=== PATIENT | male | born 1965 | race Caucasian/White ===

== ENCOUNTER 2019-03-20 09:51 | Inpatient (IN) ==
[2019-03-20] MEDS ORDERED: SODIUM CHLORIDE 0.9% 1000ML 1,000 ML IV ONE ×2 (10:34→12:03)
[2019-03-20] MEDS ORDERED: AMPICILLIN/SULBACTAM SOD 3,000 MG in 0.9 % SODIUM CHLORIDE 100 ML IV STA (10:35)
[2019-03-20 10:58] LABS: Eosinophils # (auto) 0.01 K/uL (0-0.5); Eosinophils % (auto) 0.1 %; Hematocrit (blood only) 41.4 % (42-52); Hemoglobin 14.6 g/dL (14.0-18.0); Immature Granulocytes # (auto) 0.04 K/uL (0.00-0.02); Immature Granulocytes % (auto) 0.3 %; Lymphocytes # (auto) 0.54 K/uL (1.2-3.4); Lymphocytes % (auto) 3.4 %; Mean Corpuscular Hemoglobin 31.1 pg (25-34); Mean Corpuscular Hgb Conc 35.3 g/dL (32-36); Mean Corpuscular Volume 88.3 fL (80-100); Monocytes # (auto) 1.41 K/uL (0.11-0.59); Monocytes % (auto) 8.8 %; Neutrophils % (auto) 87.4 %; Platelet Count 162 K/uL (130-400); RDW Coefficient of Variation 12.7 % (11.5-14.5); RDW Standard Deviation 40.8 fL (36.4-46.3); Red Blood Count 4.69 M/uL (4.7-6.1)
[2019-03-20 11:13] LABS: Partial Thromboplastin Time 27.3 Seconds (21.0-31.0); Prothrombin Time 10.3 Seconds (9.0-12.0)
[2019-03-20 11:15] LABS: Albumin Level 3.9 gm/dl (3.4-5.0); Calcium 8.8 mg/dl (8.5-10.1); Creatinine Clr Calc Pharmacy 77.1 ml/min; Est GFR (African American) 91.6; Magnesium 1.9 mg/dl (1.8-2.4); Potassium 3.8 mmol/L (3.5-5.1)
[2019-03-20 11:18] LABS: Albumin Globulin Ratio 1.2 (0.9-2); Bilirubin,Total 1.4 mg/dl (0.2-1); Globulin 3.2 gm/dl (2.5-4.0); Total Protein 7.1 gm/dl (6.4-8.2)
--- NOTE | 2019-03-20 11:31 | XRay Report ---
XR chest 1V portable HISTORY: SEPSIS COMPARISON: None. FINDINGS: The lungs are clear. Cardiac silhouette is normal in size. No pleural effusions. No pneumot horax. Old, healed right-sided rib fractures and an old, healed left clavicle fracture. IMPRESSION: No acute process. ACT 112: Negative or not required by law. Electronically signed by: Simba Rice M.D. 03/20/2019 11:30 AM
[2019-03-20] MEDS ORDERED: KETOROLAC 30 MG/ML VIAL IV STA (12:03)
[2019-03-20] MEDS ORDERED: DIPHTHERIA/TETANUS/PERTUSSIS 0.5 ML SYR/VIAL IM ONE (12:03)
[2019-03-20] MEDS ORDERED: ACETAMINOPHEN 500 MG TAB PO STA (12:14)
--- NOTE | 2019-03-20 12:55 | History & Physical Report ---
Date of Service March 20, 2019 Assessment & Plan (1) Cellulitis of hand, right: (2) Lymphangitis: (3) Cat bite: Over 24 hours ago bite to right hand from his inside house cat. Increased edema, erythema, discomfort to right hand since. +chills. Reports thinks cat up to date on vaccinations. In ER T: 38, P: 108, R: 20, BP: 105/72, 96% on RA. WBC: 16, Lactate: 1.6 Meets SIRS criteria. -In ER received Tdap, Unasyn, Tylenol, Toradol -Continue Unasyn -Obtain Xray of hand -Ibuprofen, Tramadol for pain control, oxycodone for severe pain -Ortho consult, called ortho answering service -CBC, BMP in AM (4) Tobacco use: -Chewing tobacco cessation discussed -Nicotine patch (5) GERD (gastroesophageal reflux disease): -Continue PPI DVT Prophylaxis -Low risk - Ambulate Full Code as per discussion with pt Follows with Dr Hardy for routine care Pt was seen and care coordinated with Dr Petersen. See addendum History of Present Illness Chief Complaint: Right hand erythema Primary Care Provider: Jonas Hardy MD Pt is 53 y/o M with PMH GERD presented to ER with c/o R hand erythema and edema x 1 day. Reports a little over 24 hours ago his inside house cat and his outdoor cat had an encounter in his garage and he picked up his indoor cat and it bit his right hand. Over past 24 hours reports noticed edema, erythema to right hand. Denies any noted discharge from area. Reports pain to hand with palpation and ROM of fingers. Last night felt some chills, did not take his temperature. He reports he thinks that the indoor cat is up to date on its vaccinations. He was unsure when his last tetanus booster. Denies diaphoresis, N/V/D/C, BRICEÑO, dizziness, syncope, vision changes, neck pain, CP, SOB, orthopnea, palpitations, cough, sore throat, choking, otalgia, rhinorrhea, abdominal pain, paresthesias, weakness, extremity weakness, other rashes, urinary symptoms. In ER received updated Tdap today. Allergies Allergy/AdvReac Type Severity Reaction Status Date / Time No Known Drug Allergies Allergy Unknown . Verified 03/20/19 11:46 Home Medications Home Medications Medication Instructions Recorded Confirmed Type omeprazole 20 mg PO QAM 03/20/19 03/20/19 History Past Med/Surg History Medical History GERD (gastroesophageal reflux disease) Tobacco use Surgical History (Updated 03/20/19 @ 13:04 by Ling Diaz PA-C) History of arthroscopic knee surgery History of eye surgery As Family History Other No pertinent family history Social History (Updated 03/20/19 @ 13:04 by Ling Diaz PA-C) Preferred Language: Montserratian Communication Ability: Effective Grid Maker Required: No Beliefs That Will Affect Care: None marital status: Current Living Situation: Spouse current occupational status: employed Other Information That Helps Us Care for You: No Feels Safe at Home: Yes Safety Concerns: Feels Safe At This Time Smoking Status: Former smoker Tobacco Type: smokeless tobacco ; Do You Dip or Chew Tobacco: Yes (1 can/day) ; Hx Alcohol Use: Yes Alcohol type: beer Hx Substance Use: No Review of Systems Review of Systems: All systems reviewed & are unremarkable except as noted in HPI & below Physical Exam Physical Exam: General: no distress, WDWN Head: normocephalic, atraumatic Eyes: PERRL, EOM's intact, conjunctiva non-injected, anicteric ENT: normal inspection external ears, nose, mucous membranes moist Neck: supple, trachea midline Lungs: clear, no respiratory distress, no wheezing/rhonchi/rales CV: RRR, no murmur, no pretibial edema Abd: normal BS, soft, non-tender Ext: no cyanosis, no calf tenderness; RUE: Right hand: +warmth, edema, erythema entire hand extending to fingers and right wrist, worse edema over dorsal aspect of hand over 2nd and 3rd MCP joints and to radial aspect of wrist with tenderness to palpation; +scabbed puncture sites to dorsal hand, +dry skin and fissures noted to fingers; Limited flexion of fingers secondary to edema and discomfort, limited flexion and extension of wrist. +red streaking from wrist proximally to axilla Neuro: A&O x 3, no focal deficits noted, normal affect Skin: as above in extremities, otherwise warm, dry Results & Data Vital Signs (Past 12 Hours) Vital Signs Temp Pulse Pulse Resp BP BP Pulse Ox 03/20/19 11:52 71 18 120/73 96 03/20/19 10:34 96 03/20/19 10:02 38.0 C H 104 H 20 105/72 96 Laboratory Results Short CBC 03/20/19 Range/Units 10:45 WBC 16.00 H (4.8-10.8) K/uL Hgb 14.6 (14.0-18.0) g/dL Hct 41.4 L (42-52) % Plt Count 162 (130-400) K/uL BMP 03/20/19 10:45 Sodium 136 Potassium 3.8 Chloride 105 Carbon Dioxide 26 BUN 16 Creatinine 1.08 Glucose 120 H Calcium 8.8 Liver Function 03/20/19 Range/Units 10:45 Total Bilirubin 1.4 H (0.2-1) mg/dl AST 15 (15-37) U/L ALT 26 (12-78) U/L Alkaline Phosphatase 74 (45-117) U/L Albumin 3.9 (3.4-5.0) gm/dl Diagnostic Findings CXR: IMPRESSION: No acute process. Code Status & VTE Plan VTE Prophylaxis Plan VTE Prophylaxis will be ordered: No Supervising Physician Co-Signing Physician Notes HISTORY: Record reviewed. Patient interviewed and examined in the ED. Care coordinated with Ling Diaz PA-C. Please refer to her documentation for complete history. Briefly, 53-year-old male who enjoys good health. Suffered cat bite to the right hand from domestic cat about 30 hours prior to admission. Experiencing hand pain and swelling, fever, chills. EXAM: General- no distress Lungs- clear to auscultation; no respiratory distress Cardiovascular- RRR; I/ sys murmur at base; no pretibial edema Abdomen- + bowel sounds, soft, nontender Extremities- puncture wounds dorsum right hand; erythema and swelling dorsum right hand; lymphangitic spread --> medial upper arm; no cyanosis; no calf tenderness Neuro- alert, oriented Skin- warm & dry DATA: WBC 16,000. Serum lactate 1.6. X-ray of right hand demonstrated soft tissue swelling of the dorsum, no underlying bony abnormalities, no foreign bodies. ASSESSMENT AND PLAN: Cat bite right hand with associated cellulitis. Meets criteria for sepsis per current CMS guidelines. Hemodynamically stable. Serum lactate less than 2. Blood cultures were obtained in the ED and patient was started on broad-spectrum intravenous antibiotic coverage with ampicillin/sulbactam which will be continued. Consult Orthopedics. DPT vaccine given in ED. Please refer to FRANCIS Diaz's documentation for discussion of other issues.
[2019-03-20] MEDS ORDERED: OXYCODONE HCL IR 5 MG TAB (IMMEDIATE RELEASE) PO PRN (13:39)
[2019-03-20] MEDS ORDERED: TRAMADOL HCL 50 MG TABLET PO PRN (13:39)
[2019-03-20] MEDS ORDERED: IBUPROFEN 600 MG TAB PO PRN (13:39)
[2019-03-20] MEDS ORDERED: ONDANSETRON INJ 2 MG/ML 2 ML VIAL IV PRN (13:39)
[2019-03-20] MEDS ORDERED: POLYETHYLENE (MIRALAX) 17 GM PACK PO PRN (13:39)
[2019-03-20] MEDS ORDERED: ACETAMINOPHEN 325 MG TAB PO PRN (13:39)
[2019-03-20] MEDS: SODIUM CHLORIDE 0.9% 1000ML 1,000 ML IV SCH ×2 (14:14→22:12)
[2019-03-20] MEDS: NICOTINE 21 MG/24 HR TDSY TD SCH (14:14)
--- NOTE | 2019-03-20 14:48 | XRay Report ---
RIGHT HAND 3 VIEWS HISTORY: cellulitis/cat bite COMPARISON: None. FINDINGS: There is no fracture or dislocation. Dorsal soft tissue swelling. No radiopaque foreign bod ies. IMPRESSION: Dorsal soft tissue swelling. No underlying bony abnormality. ACT 112: Negative or not required by law. Electronically signed by: Simba Rice M.D. 03/20/2019 2:47 PM
--- NOTE | 2019-03-20 15:44 | Emergency Department Note ---
Entered by Cecilia Chamberlain acting as a scribe for Onesimo Michel MD History of Present Illness General Chief complaint: Animal Bite Stated complaint: CAT BITE ON RT HAND, TEMP, RED STREAK/PAIN Time Seen by Provider: 03/20/19 10:31 Source: patient Mode of arrival: ambulatory Limitations: no limitations History of Present Illness Provider complaint: Animal bite Onset (ago): day(s) 1 Location: upper extremity (hand) and right Pain Consistency: + other (episode) Maximum Pain Intensity: 3 Quality: + other (animal bite) Associated symptoms: + fever/chills (warm to the touch), + headaches and + other (Additional symptoms: right hand pain, swelling, and warmth; streaking up right arm; back pain; abdominal pain) Treatments prior to arrival: none The patient is a 53 year old white male w/ no significant PMHx who presents to the ED w/ CC of an episode of an animal bite occurring yesterday morning. The patient reports that he works overnight and came back from work around 0330 yesterday to find his inside and outside cats fighting in the garage. He states that he tried to intervene and that his inside cat ended up biting his right hand. He notes that he had some scratches and blood on this hand but otherwise did think anything of the bite, so he subsequently went to bed without cleaning the area. He mentions that his cats appeared to be their normal selves. The patient reports that he noticed pain and swelling in his right hand when woke up a few hours later. He explains that he got back from work around 0400 this morning and realized that his right hand symptoms were progressively worsening. He describes his symptoms as a painful, peeling sensation. His reportedly also thought that the patient's hand felt warm to the touch and that he had red streaking up his right arm. The patient adds that he currently has a headache and has some back and abdominal pain secondary to a fall a week ago. He notes that he was referred to the ED from Urgent Care. Home Medications Home Medications Medication Instructions Recorded Confirmed Type omeprazole 20 mg PO QAM 03/20/19 03/20/19 History Allergies Allergy/AdvReac Type Severity Reaction Status Date / Time No Known Drug Allergies Allergy Unknown . Verified 03/20/19 11:46 Past Med/Surg History Medical History GERD (gastroesophageal reflux disease) Tobacco use Surgical History (Updated 03/20/19 @ 13:04 by Ling Diaz PA-C) History of arthroscopic knee surgery History of eye surgery As Family History Other No pertinent family history Social History (Updated 03/20/19 @ 13:04 by Ling Diaz PA-C) Preferred Language: Belgian Communication Ability: Effective Furniture Mover Required: No Beliefs That Will Affect Care: None marital status: Current Living Situation: Spouse current occupational status: employed Other Information That Helps Us Care for You: No Feels Safe at Home: Yes Safety Concerns: Feels Safe At This Time Smoking Status: Former smoker Tobacco Type: smokeless tobacco ; Do You Dip or Chew Tobacco: Yes (1 can/day) ; Hx Alcohol Use: Yes Alcohol type: beer Hx Substance Use: No Review of Systems See HPI for pertinent positives & negatives. and A total of 10 systems reviewed and were otherwise negative Physical Exam Vital Signs Vital Signs - 24 hr 03/20/19 10:02 03/20/19 10:34 03/20/19 11:52 Temperature 38.0 C H Temperature Source Oral Pulse Rate 104 H Pulse Rate [Apical] 71 Respiratory Rate 20 18 Respiratory Depth Normal Blood Pressure 105/72 Blood Pressure [Left Arm] 120/73 Blood Pressure Mean 83 Blood Pressure Mean [Left Arm] 88 Pulse Oximetry 96 96 96 Oxygen Delivery Method Room Air Room Air Room Air Sepsis Recent Fever Within 48 Hours Yes Sepsis Action Taken by Nursing No Action Required GENERAL: Well appearing, well nourished, NAD, non-toxic, wearing glasses. EYE EXAM: Normal conjunctiva. PERRL, no anisocoria and EOM's grossly intact w/o pain. OROPHARYNX: Moist mucous membranes. Grossly normal dentition. NECK: Supple, no nuchal rigidity, no adenopathy, non-tender. No signs of meningismus. LUNGS: Clear to auscultation. Normal chest wall mechanics. HEART: NSR, no MRG. ABDOMEN: Abdomen soft, non-tender, no masses, no rebound or guarding. BACK: No CVA TTP. SKIN: No rashes and no bruising. UPPER EXTREMITIES: Redness and swelling over the dorsal aspect of the right hand between the first and second digits. No crepitus, mild TTP. Redness streaking up to the right bicep. LOWER EXTREMITIES: No pitting edema. No calf pain. NEURO EXAM: A&O x3, cranial nerves II-XII grossly intact, normal speech, moves all 4 extremities on command w/o issue. Course Course 1032: At this time the patient was evaluated by the medical student, Moose Rae. The medical student's findings were discussed with me. We discussed a possible treatment plan and differential diagnoses for the patient. 1150: The patient was evaluated in room B6, and a complete history and physical examination were performed. 1153: Orders were placed. The patient was started on a computer information systems instructor at this time. I also updated the patient's tetanus. 1213: I reviewed the patient's case with Caprice Gan PA-C. Dr. Petersen will evaluate the patient for further management. Consultations Consultation #1: I reviewed the patient's case with Caprice Gan PA-C. Dr. Petersen will evaluate the patient for further management. Time: 12:13 Administered Medications Acetaminophen (Tylenol) 650 mg PO Q4H PRN PRN Reason: pain/fever Stop: 04/19/19 13:38 Last Admin: 03/20/19 14:33 Dose: 650 mg Documented by: [id number] Sodium Chloride (Nss 1000ml) 1,000 mls @ 125 mls/hr IV .Q8H [place] Stop: 03/21/19 05:38 Last Admin: 03/20/19 14:14 Dose: 125 mls/hr Documented by: [id number] Nicotine (Nicoderm Cq) 21 mg TD QAM [facility] Stop: 04/19/19 13:44 Last Admin: 03/20/19 14:14 Dose: 21 mg Documented by: [id number] Discontinued Medications Acetaminophen (Tylenol) 1,000 mg PO NOW STA Stop: 03/20/19 12:15 Last Admin: 03/20/19 12:18 Dose: 1,000 mg Documented by: [id number] Diphtheria/Pertussis/Tetanus Vacc (Adacel) 0.5 ml IM .ONCE ONE Stop: 03/20/19 12:04 Last Admin: 03/20/19 12:18 Dose: 0.5 ml Documented by: [id number] Sodium Chloride (Nss 1000ml) 1,000 mls @ 999 mls/hr IV .Q1H1M ONE Stop: 03/20/19 11:34 Last Infusion: 03/20/19 12:01 Dose: 0 mls/hr Documented by: [id number] Admin: 03/20/19 11:00 Dose: 999 mls/hr Documented by: [id number] Ampicillin Sodium/Sulbactam Sodium 3,000 mg/ Sodium Chloride 108 mls @ 200 mls/hr IV NOW STA; Protocol Stop: 03/20/19 11:07 Last Infusion: 03/20/19 11:34 Dose: 0 mls/hr Documented by: [id number] Admin: 03/20/19 11:00 Dose: 200 mls/hr Documented by: [id number] Sodium Chloride (Nss 1000ml) 1,000 mls @ 999 mls/hr IV .Q1H1M ONE Stop: 03/20/19 13:03 Last Infusion: 03/20/19 14:17 Dose: 0 mls/hr Documented by: [id number] Admin: 03/20/19 12:18 Dose: 999 mls/hr Documented by: [id number] Ketorolac Tromethamine (Toradol) 30 mg IV NOW STA Stop: 03/20/19 12:04 Last Admin: 03/20/19 12:18 Dose: 30 mg Documented by: [id number] Medical Decision Making Differential Diagnosis Differential diagnosis includes: cellulitis, abscess, MRSA infection, DVT, necrotizing fasciitis, dermatitis, drug eruption, as well as others were entertained. Medical Records Attestation: I reviewed the patient's medical records. Home Medications Current Medication List: was personally reviewed by me Laboratory Data Attestation: I reviewed the patient's lab results. Result diagrams: 03/20/19 10:45 03/20/19 10:45 Lab Results 03/20/19 03/20/19 03/20/19 Range/Units 10:45 10:45 10:45 WBC 16.00 H (4.8-10.8) K/uL RBC 4.69 L (4.7-6.1) M/uL Hgb 14.6 (14.0-18.0) g/dL Hct 41.4 L (42-52) % MCV 88.3 (80-100) fL MCH 31.1 (25-34) pg MCHC 35.3 (32-36) g/dL RDW Std Deviation 40.8 (36.4-46.3) fL RDW Coeff of Opal 12.7 (11.5-14.5) % Plt Count 162 (130-400) K/uL MPV 9.0 (7.4-10.4) fL Immature Gran % (Auto) 0.3 % Neut % (Auto) 87.4 % Lymph % (Auto) 3.4 % [place] % (Auto) 8.8 % Eos % (Auto) 0.1 % Baso % (Auto) 0.0 % Immature Gran # (Auto) 0.04 H (0.00-0.02) K/uL Neut # (Auto) 14.00 H (1.4-6.5) K/uL Lymph # (Auto) 0.54 L (1.2-3.4) K/uL [place] # (Auto) 1.41 H (0.11-0.59) K/uL Eos # (Auto) 0.01 (0-0.5) K/uL Baso # (Auto) 0.00 (0-0.2) K/uL PT 10.3 (9.0-12.0) Seconds INR 1.0 (0.9-1.1) APTT 27.3 (21.0-31.0) Seconds PTT Ratio 1.0 Sodium 136 (136-145) mmol/L Potassium 3.8 (3.5-5.1) mmol/L Chloride 105 (98-107) mmol/L Carbon Dioxide 26 (21-32) mmol/L Anion Gap 5.0 (3-11) BUN 16 (7-18) mg/dl Creatinine 1.08 (0.6-1.4) mg/dl Est Cr Clr Drug Dosing 77.1 ml/min Est GFR ( Amer) 91.6 Est GFR (Non-Af Amer) 79.0 BUN/Creatinine Ratio 15.0 (10-20) Glucose 120 H (70-99) mg/dl Lactate (0.4-2.0) mmol/L Calcium 8.8 (8.5-10.1) mg/dl Magnesium 1.9 (1.8-2.4) mg/dl Total Bilirubin 1.4 H (0.2-1) mg/dl AST 15 (15-37) U/L ALT 26 (12-78) U/L Alkaline Phosphatase 74 (45-117) U/L Total Protein 7.1 (6.4-8.2) gm/dl Albumin 3.9 (3.4-5.0) gm/dl Globulin 3.2 (2.5-4.0) gm/dl Albumin/Globulin Ratio 1.2 (0.9-2) Procalcitonin (0-0.5) ng/ml 03/20/19 03/20/19 Range/Units 10:45 10:45 WBC (4.8-10.8) K/uL RBC (4.7-6.1) M/uL Hgb (14.0-18.0) g/dL Hct (42-52) % MCV (80-100) fL MCH (25-34) pg MCHC (32-36) g/dL RDW Std Deviation (36.4-46.3) fL RDW Coeff of Opal (11.5-14.5) % Plt Count (130-400) K/uL MPV (7.4-10.4) fL Immature Gran % (Auto) % Neut % (Auto) % Lymph % (Auto) % [place] % (Auto) % Eos % (Auto) % Baso % (Auto) % Immature Gran # (Auto) (0.00-0.02) K/uL Neut # (Auto) (1.4-6.5) K/uL Lymph # (Auto) (1.2-3.4) K/uL [place] # (Auto) (0.11-0.59) K/uL Eos # (Auto) (0-0.5) K/uL Baso # (Auto) (0-0.2) K/uL PT (9.0-12.0) Seconds INR (0.9-1.1) APTT (21.0-31.0) Seconds PTT Ratio Sodium (136-145) mmol/L Potassium (3.5-5.1) mmol/L Chloride (98-107) mmol/L Carbon Dioxide (21-32) mmol/L Anion Gap (3-11) BUN (7-18) mg/dl Creatinine (0.6-1.4) mg/dl Est Cr Clr Drug Dosing ml/min Est GFR ( Amer) Est GFR (Non-Af Amer) BUN/Creatinine Ratio (10-20) Glucose (70-99) mg/dl Lactate 1.6 (0.4-2.0) mmol/L Calcium (8.5-10.1) mg/dl Magnesium (1.8-2.4) mg/dl Total Bilirubin (0.2-1) mg/dl AST (15-37) U/L ALT (12-78) U/L Alkaline Phosphatase (45-117) U/L Total Protein (6.4-8.2) gm/dl Albumin (3.4-5.0) gm/dl Globulin (2.5-4.0) gm/dl Albumin/Globulin Ratio (0.9-2) Procalcitonin 0.07 (0-0.5) ng/ml Imaging Data Radiologist's Impression: Radiology results as stated below per my review and the radiologist's interpretation: XR chest 1V portable HISTORY: SEPSIS COMPARISON: None. FINDINGS: The lungs are clear. Cardiac silhouette is normal in size. No pleural effusions. No pneumothorax. Old, healed right-sided rib fractures and an old, healed left clavicle fracture. IMPRESSION: No acute process. ACT 112: Negative or not required by law. Electronically signed by: Simba Rice M.D. 03/20/2019 11:30 AM RIGHT HAND 3 VIEWS HISTORY: cellulitis/cat bite COMPARISON: None. FINDINGS: There is no fracture or dislocation. Dorsal soft tissue swelling. No radiopaque foreign bodies. IMPRESSION: Dorsal soft tissue swelling. No underlying bony abnormality. ACT 112: Negative or not required by law. Electronically signed by: Simba Rice M.D. 03/20/2019 2:47 PM ECG Data Attestation: I personally reviewed and interpreted this ECG as follows: Indication: + other (animal bite) Blood Pressure Blood Pressure Findings: Normal blood pressure MDM Narrative The patient is a 53 year old white male w/ no significant PMHx who presents to the ED w/ CC of an episode of an animal bite occurring yesterday morning. Patient was seen and evaluated the bedside. The patient does present with concern for cat bite 2 days ago. The patient has had progressively worsening swelling redness pain. Patient states that the cat is an indoor cat vaccinated. Patient is unsure as to whether or not he is up-to-date on his tetanus. The patient does not have evidence of compartment syndrome at this time. There is no abscess noted but the patient does have swelling over the right hand. Patient is right-hand dominant. Patient does smoke. I counseled patient on smoking cessation for 3 minutes. Treatment options di scussed and resources provided. Patient was receptive. The patient did have Unasyn ordered along with blood cultures given the patient was tachycardic febrile does have a white count of source. I did speak the on- call hospitalist agreed to further evaluate treat the patient. Right hand film is negative for foreign body. No fracture. Patient does not have any crepitus. No signs of necrotizing fasciitis. Patient was admitted to the medicine service. Impression & Plan Lymphangitis, Cellulitis of hand, Cat bite, Fever, Encounter for smoking cessation counseling Discharge Plan Visit Data *Final* Discharge Date/Time: 03/20/19 13:12 Chief Complaint: Animal Bite Stated Complaint: CAT BITE ON RT HAND, TEMP, RED STREAK/PAIN ED Provider: Onesimo Michel Discharge Problem: Lymphangitis, Cellulitis of hand, Cat bite, Fever, Encounter for smoking cessa tion counseling Patient Disposition: Admitted As Inpatient Discharge Instructions Interventions: ED Discharge Assessment Last Done: 03/20/19 13:12 Discharge Problem: Cat bite Qualifiers: Encounter type: initial encounter Qualified Code(s): W55.01XA - Bitten by cat, initial encounter Fever Qualifiers: Fever type: unspecified Qualified Code(s): R50.9 - Fever, unspecified The scribe's documentation has been prepared under my direction and personally reviewed by me in its entirety. I confirm that the note above accurately reflects all work, treatment, procedures, and medical decision making performed by me.
[2019-03-20] MEDS: AMPICILLIN/SULBACTAM SOD 3,000 MG in 0.9 % SODIUM CHLORIDE 100 ML IV SCH ×2 (15:53→22:12)
[2019-03-20 22:30] LABS: Appearance Urine Clear (Clear); Bilirubin Urine Negative (Negative); Blood Urine Negative (Negative); Color Urine Yellow; Glucose Urine UA Negative (Negative); Ketones Urine Negative (Negative); Leukocyte Esterase Urine Negative (Negative); Nitrite Urine Negative (Negative); Protein Urine Negative (Negative); Specific Gravity Urine 1.015 (1.000-1.030); Urobilinogen Urine Negative (Negative); pH Urine 7.5 (4.5-7.5)
[2019-03-21] MEDS: AMPICILLIN/SULBACTAM SOD 3,000 MG in 0.9 % SODIUM CHLORIDE 100 ML IV SCH ×4 (04:50→21:10)
[2019-03-21 06:47] LABS: Basophils # (auto) 0.01 K/uL (0-0.2); Basophils % (auto) 0.1 %; Eosinophils # (auto) 0.05 K/uL (0-0.5); Eosinophils % (auto) 0.6 %; Hematocrit (blood only) 36.8 % (42-52); Hemoglobin 12.7 g/dL (14.0-18.0); Immature Granulocytes # (auto) 0.02 K/uL (0.00-0.02); Immature Granulocytes % (auto) 0.2 %; Lymphocytes # (auto) 0.77 K/uL (1.2-3.4); Lymphocytes % (auto) 9.1 %; Mean Corpuscular Hemoglobin 30.5 pg (25-34); Mean Corpuscular Hgb Conc 34.5 g/dL (32-36); Mean Corpuscular Volume 88.2 fL (80-100); Mean Platelet Volume 8.8 fL (7.4-10.4); Monocytes # (auto) 0.65 K/uL (0.11-0.59); Monocytes % (auto) 7.7 %; Neutrophils # (auto) 6.95 K/uL (1.4-6.5); Neutrophils % (auto) 82.3 %; Platelet Count 121 K/uL (130-400); RDW Coefficient of Variation 12.8 % (11.5-14.5); RDW Standard Deviation 41.5 fL (36.4-46.3); Red Blood Count 4.17 M/uL (4.7-6.1); White Blood Count 8.45 K/uL (4.8-10.8)
[2019-03-21 07:29] LABS: BUN Creatinine Ratio 15.5 (10-20); Calcium 8.1 mg/dl (8.5-10.1); Creatinine Clr Calc Pharmacy 111.1 ml/min; Est GFR (African American) 123.1; Est GFR (Non-African American) 106.2; Potassium 3.7 mmol/L (3.5-5.1)
[2019-03-21] MEDS: NICOTINE 21 MG/24 HR TDSY TD SCH (08:26)
[2019-03-21] MEDS: PANTOprazole 40 MG TAB PO SCH (08:28)
--- NOTE | 2019-03-21 14:49 | Consultation Report ---
DATE OF CONSULTATION: 03/21/2019 PERTINENT HISTORY: This is a 53-year-old gentleman seen at the request of Dr. Petersen and Dr. Banerjee for right hand pain and swelling status post cat bite. The patient had a cat bite approximately 36 hours ago from his inside house cat. He had increasing edema, erythema and discomfort with swelling to his right hand. 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 Cat is apparently up-to-date on his vaccinations. He had some chills. He presented to the Emergency Department. He was seen by the Emergency Department physician and then admitted to the hospitalist service for IV antibiotics. Orthopedics to consult. The patient had Tdap vaccination in the Emergency Department. He was placed on IV antibiotics. He did had some improvement in his symptoms since beginning of the antibiotics here in the hospital. PAST MEDICAL HISTORY: Reflux and tobacco abuse. PAST SURGICAL HISTORY: Arthroscopic knee surgery, eye surgery as an . ALLERGIES: No known drug allergies. MEDICATIONS: Omeprazole 20 mg p.o. q.a.m. SOCIAL HISTORY: Uses smokeless tobacco 1 can a day, drinks beer fairly regularly. No drug use. He is . He lives with his spouse. He is employed in a warehouse. PHYSICAL EXAMINATION: This is a 53-year-old right hand dominant gentleman who is alert and oriented x3. Speech clear and fluent. Affect is appropriate. Wearing glasses. His is present at bedside. Examination of the right hand demonstrates edema, erythema, tenderness to palpation over the puncture sites over the dorsal radial aspect of the right wrist. He has cat scratches and punctures in the dorsal lateral hand. He has 50% flexion and extension of his hand. He states it is improving compared to the last 24 hours extending from the PIP joint, dorsal and proximal to the wrist crease. There are no streaking. Streaking that was noted previously at the level of the axilla is now resolved. Radiographs note soft tissue swelling, no abscess, no fluid collections, no foreign body, no evidence of tooth or nail fragments. LABORATORIES: Reviewed. 16,000 white count upon admission. IMPRESSION: 1. Cat bite, right hand and wrist. 2. Cellulitis, right hand, improving. 3. Right hand pain secondary to above. RECOMMENDATION: Continue IV antibiotics. No need for surgical intervention at this time. May follow up as an outpatient as necessary if symptoms resolve. Should need further observation, will be glad to reassess if need for surgical intervention presents. Thank you for the opportunity to consult care of this patient. MILAGROS
--- NOTE | 2019-03-21 15:56 | Hospitalist Progress Note ---
Date of Service March 21, 2019 Assessment & Plan (1) Cellulitis of hand, right: (2) Lymphangitis: (3) Cat bite: Present on admission with right hand erythema, swelling and tenderness associated with chills and swelling Temp in the ER 38 with normal lactate Hand xray showed dorsal soft tissue swelling. Continue abx with Unasyn Blood cx no growth Ortho on board recommended no surgical intervention and continue with abx therapy Continue pain control Erythema improves significantly (4) Tobacco use: Counseling on tobacco cessation On Nicotine patch (5) GERD (gastroesophageal reflux disease): Continue PPI DVT Prophylaxis Low risk - Ambulate Code status Full Code Subjective Pt was seen and examined Lying in bed with no distress Pt said that the redness improves in his arm Denies any chest pain, palpitation, fever, dizziness and SOB Physical Exam Physical Exam: General- No acute distress Head- atraumatic Eyes- PERRL, EOMI, ENT- oropharynx clear Neck- supple, no JVD Lungs- clear to auscultation Heart- regular rhythm; no murmur Abdomen- normal bowel sounds, soft, nontender Extremities- no calf tenderness, puncture wounds right hand dorsal area, swelling, with improves in the erythema Neuro- alert, oriented x 3; PERRL, EOMI; no facial palsy; no dysarthria Skin- warm & dry Results & Data ([facility]) Vital Signs (Past 12 Hours) Vital Signs Temp Pulse Resp BP Pulse Ox 03/21/19 07:20 36.7 C 69 16 118/77 98
[2019-03-22] MEDS: AMPICILLIN/SULBACTAM SOD 3,000 MG in 0.9 % SODIUM CHLORIDE 100 ML IV SCH ×3 (04:05→15:25)
[2019-03-22] MEDS: PANTOprazole 40 MG TAB PO SCH (08:55)
[2019-03-22] MEDS: NICOTINE 21 MG/24 HR TDSY TD SCH (08:56)
--- NOTE | 2019-03-22 17:34 | Hospitalist Progress Note ---
Date of Service March 22, 2019 Assessment & Plan (1) Cellulitis of hand, right: (2) Lymphangitis: (3) Cat bite: Present on admission with right hand erythema, swelling and tenderness associated with chills and swelling Temp in the ER 38 with normal lactate Hand xray showed dorsal soft tissue swelling. Continue abx with Unasyn Blood cx no growth Ortho on board recommended no surgical intervention and continue with abx therapy Continue pain control Erythema resolved and swelling in the dorsal in the hand improves Will transition from IV Unasyn to Augmentin BID (4) Tobacco use: Counseling on tobacco cessation On Nicotine patch (5) GERD (gastroesophageal reflux disease): Continue PPI DVT Prophylaxis Low risk - Ambulate Code status Full Code Disposition Discharge home today Subjective Pt was seen and examined Lying in bed with no distress Pt hand looks much better Erythema resolved and swelling improves Pt said that now he is able to make a fist Denies any chest pain, palpitation, fever and SOB Physical Exam Physical Exam: General- No acute distress Head- atraumatic Eyes- PERRL, EOMI, ENT- oropharynx clear Neck- supple, no JVD Lungs- clear to auscultation Heart- regular rhythm; no murmur Abdomen- normal bowel sounds, soft, nontender Extremities- no calf tenderness, puncture wounds right hand dorsal area, swelling, with improves in the erythema Neuro- alert, oriented x 3; PERRL, EOMI; no facial palsy; no dysarthria Skin- warm & dry Results & Data ([facility]) Vital Signs (Past 12 Hours) Vital Signs Temp Pulse Resp BP Pulse Ox 03/22/19 15:08 37.2 C 71 16 131/82 96 03/22/19 07:18 36.7 C 65 16 122/77 97
--- NOTE | 2019-03-25 10:16 | Discharge Summary ---
Date of Service March 22, 2019 Admission HPI Per Admitting Provider Pt is 53 y/o M with PMH GERD presented to ER with c/o R hand erythema and edema x 1 day. Reports a little over 24 hours ago his inside house cat and his outdoor cat had an encounter in his garage and he picked up his indoor cat and it bit his right hand. Over past 24 hours reports noticed edema, erythema to right hand. Denies any noted discharge from area. Reports pain to hand with palpation and ROM of fingers. Last night felt some chills, did not take his temperature. He reports he thinks that the indoor cat is up to date on its vaccinations. He was unsure when his last tetanus booster. Denies diaphoresis, N/V/D/C, BRICEÑO, dizziness, syncope, vision changes, neck pain, CP, SOB, orthopnea, palpitations, cough, sore throat, choking, otalgia, rhinorrhea, abdominal pain, paresthesias, weakness, extremity weakness, other rashes, urinary symptoms. In ER received updated Tdap today. Admission Exam Per Admitting Provider General: no distress, WDWN Head: normocephalic, atraumatic Eyes: PERRL, EOM's intact, conjunctiva non-injected, anicteric ENT: normal inspection external ears, nose, mucous membranes moist Neck: supple, trachea midline Lungs: clear, no respiratory distress, no wheezing/rhonchi/rales CV: RRR, no murmur, no pretibial edema Abd: normal BS, soft, non-tender Ext: no cyanosis, no calf tenderness; RUE: Right hand: +warmth, edema, erythema entire hand extending to fingers and right wrist, worse edema over dorsal aspect of hand over 2nd and 3rd MCP joints and to radial aspect of wrist with tenderness to palpation; +scabbed puncture sites to dorsal hand, +dry skin and fissures noted to fingers; Limited flexion of fingers secondary to edema and discomfort, limited flexion and extension of wrist. +red streaking from wrist proximally to axilla Neuro: A&O x 3, no focal deficits noted, normal affect Skin: as above in extremities, otherwise warm, dry Principal Diagnosis (1) Cellulitis of hand, right: (2) Lymphangitis: (3) Cat bite: (4) Tobacco use: (5) GERD (gastroesophageal reflux disease): Discharge Exam General- No acute distress Head- atraumatic Eyes- PERRL, EOMI, ENT- oropharynx clear Neck- supple, no JVD Lungs- clear to auscultation Heart- regular rhythm; no murmur Abdomen- normal bowel sounds, soft, nontender Extremities- no calf tenderness, puncture wounds right hand dorsal area, swelling, with improves in the erythema Neuro- alert, oriented x 3; PERRL, EOMI; no facial palsy; no dysarthria Skin- warm & dry Discharge Data Allergies Allergy/AdvReac Type Severity Reaction Status Date / Time No Known Drug Allergies Allergy Unknown . Verified 03/20/19 11:46 Consultations 03/20/19 12:12 ED Decision to Admit Stat 03/20/19 13:39 Consult Orthopedic Surgery Routine Ordered Studies XR chest 1V portable HISTORY: SEPSIS COMPARISON: None. FINDINGS: The lungs are clear. Cardiac silhouette is normal in size. No pleural effusions. No pneumothorax. Old, healed right-sided rib fractures and an old, healed left clavicle fracture. IMPRESSION: No acute process. ACT 112: Negative or not required by law. Electronically signed by: Simba Rice M.D. 03/20/2019 11:30 AM Dictated: 03/20/19 1128 Transcribed: 03/20/19 1128 RIGHT HAND 3 VIEWS HISTORY: cellulitis/cat bite COMPARISON: None. FINDINGS: There is no fracture or dislocation. Dorsal soft tissue swelling. No radiopaque foreign bodies. IMPRESSION: Dorsal soft tissue swelling. No underlying bony abnormality. ACT 112: Negative or not required by law. Electronically signed by: Simba Rice M.D. 03/20/2019 2:47 PM Dictated: 03/20/19 1446 Transcribed: 03/20/19 1446 Hospital Course (1) Cellulitis of hand, right: (2) Lymphangitis: (3) Cat bite: Present on admission with right hand erythema, swelling and tenderness associated with chills and swelling Temp in the ER 38 with normal lactate Hand xray showed dorsal soft tissue swelling. Continue abx with Unasyn Blood cx no growth Ortho on board recommended no surgical intervention and continue with abx therapy Continue pain control Erythema resolved and swelling in the dorsal in the hand improves Will transition from IV Unasyn to Augmentin BID (4) Tobacco use: Counseling on tobacco cessation On Nicotine patch (5) GERD (gastroesophageal reflux disease): Continue PPI DVT Prophylaxis Low risk - Ambulate Code status Full Code Disposition Discharge home today Total Time Total Time Spent Total Time Spent (In Minutes): 35 minutes Total Time Includes: Examination of the Patient, Discharge Planning, Medication Reconciliation, Communication With Other Providers and Other Discharge Plan Discharge Items Patient Disposition: Home - Self-Care Reason For Visit: CAT BITE R HAND Discharge Diagnosis: (1) Cellulitis of hand, right: (2) Lymphangitis: (3) Cat bite: (4) Tobacco use: (5) GERD (gastroesophageal reflux disease): Activity: Resume your previous activity Non-emergency contact: Primary Care Provider Call non-emergency contact if: you have any medication questions and your temperature is above 101 Follow-up/Referrals: Jonas Hardy MD [Primary Care Provider] - Diet: Regular Addtl Attending Provider Instructions: Follow up with your primary care provider within 1 week Complete the course of the antibiotic with Augmentin (take 1st dose tonight) Counseling on tobacco cessation Pending Studies at Discharge: No Stand-Alone Forms: [facility], Smoking Cessation Medications and DC Order Prescriptions: New amoxicillin-pot clavulanate [Augmentin] 875-125 mg tablet 1 tab PO Q12H 7 Days Qty: 14 RF: 0 Continued omeprazole 20 mg capsule,delayed release(DR/EC) 20 mg PO QAM RF: 0 Discharge Orders: Discharge Order (Routine); Ordered 03/22/19 Ordered By: [place]/Other Patient Handouts: Tetanus Immune Globulin Human TIG injection, Tetanus Toxoid Adsorbed injection, Tetanus Antibody Admission Data Admit Date/Time: 03/21/19 17:48 Attending Provider: La Banerjee Admit Provider: Hudson Petersen Primary Care Provider: Jonas Hardy Other Providers: Hudson Petersen ; Josef Crow Other Interventions: Discharge Summary Assessment (RN) Last Done: 03/22/19 18:10 DC Date/Time DO NOT enter until pt leaves facility: 03/22/19 18:34
== END 2019-03-22 18:34 | disposition home or self-care (01) | DRG 603 ==
LOC: ED 09:51 → 2N 09:51 → SUATTDRO 12:22 → 2N 13:12 → 3N 18:38